=== PATIENT | male | born 1990 | race Caucasian/White ===

== ENCOUNTER 2024-08-27 18:11 | Emergency (ER) | payer BC ==
[~2024-08-27] VITALS: Ht 167.6 cm; Wt 82.0 kg
[2024-08-27 18:39] VITALS: O2SAT 100
[2024-08-27] MEDS ORDERED: AMOX1TAB16 MT (19:24)
[2024-08-27] MEDS ORDERED: ONDA-239 PO (19:25)
[2024-08-27] MEDS: ACETAMINOPHEN 500MG TABLET PO ONE (19:33)
[2024-08-27] MEDS: ONDANSETRON 4MG ODT PO ONE (19:33)
[2024-08-27] MEDS: KETOROLAC 30MG/ML VIAL IM ONE (19:34)
[2024-08-27 19:35] VITALS: BP 132/77; PULSE 87; RESP 16; TEMP 36.94740; O2SAT 100
== END 2024-08-27 19:35 | disposition home or self-care (01) ==
LOC: ER 18:11
DX: J18.9 Pneumonia, unspecified organism (principal)
CPT/HCPCS: 99283; 71045; 96372; Q0162; J1885